=== PATIENT | male | born 1970 ===

== ENCOUNTER → 2023-03-27 14:56 | Outpatient (BNVA) | payer BC, SELFPAY | PROVIDERS: Visit Provider Internal Medicine | DX: I49.8 Other specified cardiac arrhythmias (principal); I49.3 Ventricular premature depolarization; I10 Essential (primary) hypertension | CPT/HCPCS: 93005 ==

== ENCOUNTER → 2023-04-14 08:06 | Outpatient (REF) | payer BC, SELFPAY ==
--- NOTE | 2023-04-14 08:15 | CA_ITS ---
Acquisition Time: 2023-04-14 08:24:55 Total Exercise Time: 00:06:10 Test Indications: Abnormal ECG Medications: LISINOPRIL/HCTZ LORATADINE METOPROLOL NEBUMETONE Protocol: RICCARDO Max HR: 123 BPM 72% of Pred: 170 BPM Max BP: 146/078 mmHG Max Work Load: 7.2 METS Exercise stress test with exercise 6 min 10 sec of Riccardo protocol, achieving 68% MPHR, with moderate sob, no chest discomfort, with isolated PACs, frequent multifocal PVCs throughut test, occassional ventricular cuplets, with blunted chronotropic and normotensive response to exercise, with nondiagnostic EKG for ischemia. Test reviewed with Dr Pitt. Referred By: Pal Richardson Overread By: DEE STRICKLAND
--- NOTE | 2023-04-14 08:15 | HM_ITS ---
Conclusion: 1. Patient was monitored for total period of 3 days and 5 hours 2. Baseline was normal sinus rhythm with average heart of 71 beats per minute 3. No significant pauses noted 4. Total of 8118 PVCs accounting for 7.2% total beats account for frequent PVCs 5. Occasional PACs noted 6. Two episodes of nonsustained VT noted fastest 150 beats per minute and longest 3 beats 5. Patient marked twice without reporting any symptoms correlating with PVCs MTDD
== END ==
LOC: HO.CARD 08:06
PROVIDERS: Visit Provider Internal Medicine
DX: R00.2 Palpitations (principal); I49.8 Other specified cardiac arrhythmias
CPT/HCPCS: 93017; 93242

== ENCOUNTER 2023-06-26 15:55 | Outpatient (AMB) | payer BC, SELFPAY ==
--- NOTE | 2023-06-26 16:09 | A.OFFVIS_ITS ---
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 He underwent a Holter monitor and stress test and now presents for follow-up. Today he reports he has been feeling well. He has no concerning heart palpitations. He denies having chest discomfort at rest or with activity. No significant shortness of breath however admits to being mostly sedentary. He had knee replacement surgeries within the last 1-2 years and reports he is still recovering. He wants to increase his activity tolerance. No dizziness, presyncope, syncope, PND, orthopnea or edema. Takes COUNT INCLUDES THE [facility] Medical History Essential hypertension MARIA TERESA on CPAP Prostate cancer Surgical History H/O prostatectomy History of total left knee replacement History of total right knee replacement Family History Father Heart attack Mother Kidney failure Social History Alcohol intake: former Year quit: 1983 Patient Tobacco Use Status: Never used Tobacco Review of Systems Const All systems reviewed & are unremarkable except as noted in HPI and below ENT Reports dizziness Card Denies chest pain, Denies chest pain at rest, Denies chest pain with activity, Denies rapid heart rate, Denies pedal edema, Denies edema, Denies leg edema, Denies lightheadedness, Denies palpitations, Denies dyspnea, Denies dyspnea on exertion and Denies orthopnea Resp Denies cough, Denies dyspnea and Denies dyspnea on exertion GI Denies hematochezia and Denies change in stool character Musc Denies abnormal gait, Reports limited range of motion, Reports muscle cramps, Denies muscle weakness, Denies numbness, Denies radiating pain into limb, Denies stiffness and Denies tingling Neuro Denies abnormal gait, Reports dizziness, Denies numbness and Denies tingling Endo Denies palpitations Physical Exam Vital Signs: Last Vital Signs Pulse 65 06/26/23 16:10 BP 120/70 06/26/23 16:10 BMI result Body Mass Index 41.5 Const General: cooperative, healthy appearing, comfortable and no acute distress Orientation/consciousness: patient oriented x3 Neck Neck: Yes normal visual inspection Resp Effort & Inspection: normal respiratory effort Auscultation: clear to auscultation bilaterally, no crackles, no rales, no rhonchi and no wheezes Cardio Jugular venous distension: no JVD Rate: regular rate Rhythm: regular rhythm Heart sounds: S1 normal heart sound present, S2 normal heart sound present, no murmurs and no rubs Neuro General: patient oriented x3 Extrem General: Yes normal to inspection, No no pedal edema and No calf tenderness Psych Appearance: grossly normal Mental Status: mental status grossly normal Speech and movement: Normal speech and movement present Assessment & Plan Assessment & Plan (1) PVC (premature ventricular contraction): Code(s): I49.3 - Ventricular premature depolarization Plan: Reported history of PVCs. Notes indicate prior evaluation by [facility] EP and was put on beta-blockers. Echocardiogram from 2019 was reported as being normal. Holter monitor done 04/14/2023 for 3 days shows sinus rhythm with average heart rate 71, PVCs 7.2% of the time, NSVT runs longest 3 beats. Exercise stress test done 04/14/2023 with exercise 6 minutes 10 seconds with moderate shortness of breath, no chest discomfort, with and multi focal PVCs and ventricular couplets, achieving only 68% of MPHR are so nondiagnostic for ischemia. Today he reports he is generally feeling well with no concerning symptoms. He would like to increase his activity level. Will plan to update echocardiogram to ensure no cardiomyopathy from frequent PVCs. At present will continue current dose of metoprolol as his resting heart rate is in the 60s. Will check with his primary drum drier regarding need for further evaluation for ischemia. Cardiology follow-up once future test results are known. (2) Essential hypertension: Code(s): I10 - Essential (primary) hypertension Plan: Well controlled at present time. Continue lisinopril, hydrochlorothiazide and metoprolol (3) Morbid obesity: Code(s): E66.01 - Morbid (severe) obesity due to excess calories Plan: Morbidly obese, somewhat sedentary. This likely contributes to his shortness of breath with activity. He is aware of the need for weight loss and anticipates increasing his activity levels once he knows his heart will tolerate. Orders: Orders CA echo transthoracic complete Today I49.3 - Ventricular premature depolarization Coding Level of Care Code Est Pt Level 4 (29810) Diagnoses PVC (premature ventricular contraction) I49.3 Essential hypertension I10 Morbid obesity E66.01 Time Spent (min) 26 Comment chart review, document, interview, assess
[2023-06-26 16:10] VITALS: BP 120/70; PULSE 65; BMI 41.5
== END 2023-06-26 16:56 | disposition home or self-care (01) ==
PROVIDERS: Visit Provider Nurse Practitioner Family
DX: I49.3 Ventricular premature depolarization (principal); I10 Essential (primary) hypertension; E66.01 Morbid (severe) obesity due to excess calories
CPT/HCPCS: 99214

== ENCOUNTER → 2023-06-26 15:55 | Outpatient (BNVA) | payer BC, SELFPAY | PROVIDERS: Visit Provider Nurse Practitioner Family ==

== ENCOUNTER → 2023-08-11 07:57 | Outpatient (REF) | payer BC, SELFPAY ==
--- NOTE | ~2023-08-11 | NM_ITS ---
Lexiscan Myocardial perfusion study Indication: Premature contractions, assess for coronary disease and ischemia Technique: The patient was brought in for a Lexiscan perfusion study on 08/11/2023 and was injected 0.4 mg of Lexiscan intravenously. Within a minute of this injection 40 mCi of sestamibi was given intravenously. Images were obtained using the SPECT gamma camera interlaced with the gating device. Images were obtained in supine position. Resting perfusion study was performed on 08/14/2023. Patient was administered 40 mCi of sestamibi intravenously at rest. Images were then obtained in supine position. Images were processed with the software and compared side to side in short axis, horizontal long axis and vertical long axis views. Total DLP 137mGy-cm. Findings: Raw acquisition reviewed. The stress perfusion study showed no significant perfusion abnormality. Both uncorrected as well as CT attenuation corrected images were reviewed. The gated study shows normal LV systolic function with calculated LVEF of 66%. LV cavity is normal in size. The gated study shows normal wall thickening and contraction of segments. Resting study shows no significant perfusion abnormality. Gating at rest reveals normal wall motion with ejection fraction at 55%. The findings are consistent with no clear reversible or fixed perfusion defects. NM/NM cardiolite stress test Impression: 1. Myocardial perfusion imaging study shows likely normal myocardial perfusion. 2. Gated LVEF is 66% during stress and 55% during rest. 3. Transient ischemic dilatation not present. EKG component of the test reported separately.
--- NOTE | 2023-08-11 08:01 | CA_ITS ---
Transthoracic Echocardiogram Patient (Last, First, Middle): Adrian Nassar, Gender: Male Date of : 1970 Age: 53 Procedure Date: 08/11/2023 Procedure Type: Transthoracic Echocardiogram Location: OP Height: 180.34 cm Weight: 122.47 kg BSA: 2.40 m2 Heart Rate: 67 bpm BP: 124 / 80 mmHg Lard Mixer: SB Referring MD: Phylicia Pinto SALES SERVICE ASSISTANT-C Symptoms: I49.3 - Ventricular premature depolarization Study Quality: Adequate w contrast ECG Rhythm: Sinus Conclusions: - The left ventricular systolic function is normal. The visually estimated ejection fraction is between 60-65%. - Possible basal inferolateral hypokinesis (cannot comment definitively). - No obvious valvular pathology seen on this study. Findings Procedure Information Contrast agent, definity, is being given per protocol without apparent complications. Left Ventricle Normal left ventricular cavity size. There is normal left ventricular wall thickness. The left ventricular systolic function is normal. The visually estimated ejection fraction is between 60-65%. Diastolic function is normal for age. Possible basal inferolateral hypokinesis. Right Ventricle Normal right ventricular cavity size and systolic function. Atria Both atria are normal in size. Aortic Valve There is mild calcification of the aortic valve. There is no aortic valve stenosis. There is no aortic valve regurgitation. Mitral Valve The mitral valve appears normal. There is trace mitral valve regurgitation. There is no mitral valve stenosis. Pulmonic Valve The pulmonic valve is likely normal. Tricuspid Valve There is trace tricuspid valve regurgitation. Tricuspid regurgitation envelope is inadequate for calculation of right ventricular systolic pressure. Great Vessels The asc aorta and aortic arch are normal in size. Venous The inferior vena cava is normal in size and collapses greater than 50% with inspiration. Pericardium/Pleural There is no evidence of pericardial effusion. Prior Study Comparison No prior study available for comparison. Recommendations, Care & Conclusions No obvious valvular pathology seen on this study. Measurements 2D Linear Measurements IVSd: 1.78 0.6-0.9/0.6-1.0 cm LA Diam: 4.80 2.7-3.8/3.0-4.0 cm LAIDs Index: 2.00 1.5-2.3 cm/m2 LVOT Diam: 2.40 3.0+(-)1.3 cm 2D Systolic Function EF 4C: 70.80 >55% EF 2C: 67.00 >55% EF BiP: 67.80 >55% Mitral Valve MV Pk E: 1.00 MV PK A: 0.87 MV Decel Time: 212.00 E/A: 1.10 E'Lateral: 8.59 E'Medial: 6.09 E/E' Med: 16.40 E/E' Lat: 11.60 PHT: 62.00 MVA PHT: 3.55 Decel [place]: 4.70 Aortic Valve AoV Pk Elbert: 1.83 AoV Pk Grad: 13.00 DYLON: 2.59 LVOT LVOT Pk Elbert: 1.06 LVOT Mn Elbert: 0.65 LVOT VTI: 0.23 LVOT Pk Grad: 4.00 LVOT Mn Grad: 2.00 LVOT Diam: 2.40 LVOT Area: 4.52 Diastolic Function MV Pk E: 1.00 MV Pk A: 0.87 E/A: 1.10 E'Medial: 6.09 E/E' Med: 16.40 E' Laterial: 8.59 E/E' Lat: 11.60 Right Ventricle TAPSE (mm): 25.90 TVS' Elbert: 14.10 Tricuspid Valve RA Press: 3.00 Great Vessels Aorta Ao Asc: 3.50 2.1-3.4 cm Ao Arch: 3.20 Pulmonary Veins Pulm Vein S/D 1.00 Pulmonary Valve PV Pk Elbert: 0.91 Peak PV Grad: 3.00 Updated in Other Vendor System with Status of Final Pal Richardson MD electronically signed on 08/11/2023 1:10:27 PM with status of Final
--- NOTE | 2023-08-11 08:01 | CA_ITS ---
Acquisition Time: 2023-08-11 09:02:05 Total Exercise Time: 00:02:00 Test Indications: PVC'S Medications: SEE H Protocol: LEXISCAN Max HR: 100 BPM 59% of Pred: 169 BPM Max BP: 122/082 mmHG Max Work Load: 1.6 METS Pharmacological stress tets with Lexiscan injection while walking slowly on the treadmill, without anginal symptoms, frequent PVCs, ventricular bigeminy, ventricular cuplet, with normotensive response to injection, with nondiagnositic EKGs. Nuclear images pending. Test reviewed with Dr. Lester. Referred By: Phylicia Pinto Overread By: GUSTAVO LESTER
== END ==
LOC: HO.CARD 07:57
PROVIDERS: PCP Family Medicine; Visit Provider Nurse Practitioner Family
DX: I49.3 Ventricular premature depolarization (principal); I10 Essential (primary) hypertension; E66.01 Morbid (severe) obesity due to excess calories
CPT/HCPCS: 78452; 93017; 93306; A9500; J0280; J2785; Q9957

== ENCOUNTER → 2023-08-11 08:01 | Outpatient (BNV) | payer BC, SELFPAY | PROVIDERS: PCP Family Medicine; Visit Provider Internal Medicine | DX: R94.31 Abnormal electrocardiogram [ECG] [EKG] (principal); I35.8 Other nonrheumatic aortic valve disorders | CPT/HCPCS: 78452; 93016; 93018; 93306 ==

== ENCOUNTER 2023-08-28 12:13 | Outpatient (REF) | payer BC, SELFPAY ==
--- NOTE | ~2023-08-28 | XR_ITS ---
EXAMINATION: XR LEFT KNEE, RIGHT KNEE, STANDING BILATERAL KNEES CLINICAL INFORMATION: Pain COMPARISON: None TECHNIQUE: AP standing view of bilateral knees. Lateral and sunrise views of bilateral knees. FINDINGS: Right knee: Status post total knee arthroplasty. Hardware appears intact. Joint effusion present. Mild anterior posterior patellar spurring. Left knee: Status post total knee arthroplasty. Posterior patellar button. Hardware appears intact. Joint effusion present. XR/XR knee standing BI IMPRESSION: Status post bilateral total knee replacements. Hardware appears intact.
--- NOTE | ~2023-08-28 | XR_ITS ---
EXAMINATION: XR LEFT KNEE, RIGHT KNEE, STANDING BILATERAL KNEES CLINICAL INFORMATION: Pain COMPARISON: None TECHNIQUE: AP standing view of bilateral knees. Lateral and sunrise views of bilateral knees. FINDINGS: Right knee: Status post total knee arthroplasty. Hardware appears intact. Joint effusion present. Mild anterior posterior patellar spurring. Left knee: Status post total knee arthroplasty. Posterior patellar button. Hardware appears intact. Joint effusion present. XR/XR knee LT 2V IMPRESSION: Status post bilateral total knee replacements. Hardware appears intact.
--- NOTE | ~2023-08-28 | XR_ITS ---
EXAMINATION: XR LEFT KNEE, RIGHT KNEE, STANDING BILATERAL KNEES CLINICAL INFORMATION: Pain COMPARISON: None TECHNIQUE: AP standing view of bilateral knees. Lateral and sunrise views of bilateral knees. FINDINGS: Right knee: Status post total knee arthroplasty. Hardware appears intact. Joint effusion present. Mild anterior posterior patellar spurring. Left knee: Status post total knee arthroplasty. Posterior patellar button. Hardware appears intact. Joint effusion present. XR/XR knee RT 2V IMPRESSION: Status post bilateral total knee replacements. Hardware appears intact.
== END 2023-08-28 12:14 | disposition home or self-care (01) ==
LOC: HO.HOSX 12:13
PROVIDERS: Visit Provider Orthopaedic Surgery
DX: G89.18 Other acute postprocedural pain (principal); Z96.653 Presence of artificial knee joint, bilateral
CPT/HCPCS: 73560; 73565

== ENCOUNTER 2023-08-28 12:43 | Outpatient (AMB) | payer BC, SELFPAY ==
--- NOTE | 2023-08-28 12:38 | MHC.OFFVIS ---
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 Pateint reports that he had the left knee raplaced Oct [address] Morales at [facility]. He explains that one morning he woke up with severe pain in the knee and went to the surgeons walk in care. He was told that everything was okay and was sent to physical therapy. He went for a second opinion of the knee and was told that the tibial base plate was out of alignment and the solution to this was Revision and the surgeon did not do theese. He presents today to have a third opinion. 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 He is S/P left TKA, DOS: 10/10/[address] Morales at [facility] and has a hx of right TKA in [address] Pickard. He says he woke up with severe pain in his left knee one morning, and was told that everything was fine initially and was sent for more PT. When he sought out a second opinion at [place] he was told the tibial base plate was loose and he would need a revision, however that surgeon did not do revisions. He says he has pain with daily activity, some days worse than others, along with stiffness. His pain is worse with walking or using stairs, but he says he has occasional pain when sitting at rest. He says his pain is not as bad as prior to his surgery, and he is able to walk for ~30 minutes before having to stop. He says he walks with a limp and does have to sit and rest after prolonged periods of walking. He denies any fevers, chills, or other symptoms of infection. He is not sure of his limitations as most of his exercise following his TKA have been on a stationary bicycle or Elliptical machine. He says he was a runner for ~20 years when he was younger, and most of his training was on the sidewalk. [facility], [facility] Medical History MARIA TERESA on CPAP Essential hypertension Prostate cancer Surgical History H/O prostatectomy History of total left knee replacement History of total right knee replacement Family History Father Heart attack Mother Kidney failure Social History (Updated 08/28/23 @ 13:10 by Ileana Graves CMA) Alcohol intake: former Year quit: 1983 Patient Tobacco Use Status: Never used Tobacco Current occupational status: employed Review of Systems Const All systems reviewed & are unremarkable except as noted in HPI and below Physical Exam Const General: no acute distress, alert and awake Orientation/consciousness: patient oriented x3 HEENT Head: Yes normocephalic and Yes atraumatic Eyes EOM: EOMs intact bilaterally Resp Effort & Inspection: normal respiratory effort and able to speak in complete sentences Cardio Jugular venous distension: no JVD Skin General skin exam: turgor normal Rashes: no rashes Neuro General: patient oriented x3 Extrem Other: Left Knee: No effusion 5-95 deg motion No ttp Well healed incision Psych Appearance: grossly normal Affect: normal affect Attitude: cooperative Results Reviewed Results Reviewed: I personally reviewed relevant radiographs. Bilateral total knee arthroplasty in expected post operative position with no hardware complications or evidence of loosening Assessment & Plan Assessment & Plan (1) Post-operative pain: Code(s): G89.18 - Other acute postprocedural pain Plan: This is a 53 year old man with left knee pain following a TKA, DOS: 10/10/[address] Morales. He complains of sharp pain with prolonged ambulation and using stairs, along with feeling his knee giving way. He denies any swelling and localizes his pain to the anterior aspect of his knee. I reviewed his radiographs with him, there is no evidence of hardware loosening either radiographically or clinically. I ordered bloodwork to rule out infection and recommend he work on strengthening, NSAIDs, and weight management. His knee is stiff and there is lateral tilting of the patella. There is noacute intervention warranted at this time. We will contact him with the results of his labwork. Next steps could include either aspiration or referral to Pain Management . (2) Status post left knee replacement: Comment: 10/10/22 Dr. Morales Code(s): Z96.652 - Presence of left artificial knee joint (3) History of total right knee replacement: Comment: 2020 Dr. Pickard Code(s): Z96.651 - Presence of right artificial knee joint Plan Scribed for Dedrick Williamson MD by Timoteo Peralta, pesticide use medical coordinator, on 08/28/23 at 1:20 PM, EST. Orders: Orders XR knee LT 2V Today M25.569 - Pain in unspecified knee XR knee standing BI Today M25.569 - Pain in unspecified knee XR knee RT 2V Today M25.569 - Pain in unspecified knee Erythrocyte Sedimentation Rate Today Z96.652 - Presence of left artificial knee joint C Reactive Protein Today Z96.652 - Presence of left artificial knee joint Coding Level of Care Code New Pt Level 4 (83366) Diagnoses Post-operative pain G89.18 Status post left knee replacement Z96.652 History of total right knee replacement Z96.651
== END 2023-08-28 13:34 | disposition home or self-care (01) ==
PROVIDERS: PCP Family Medicine; Visit Provider Orthopaedic Surgery
DX: G89.18 Other acute postprocedural pain (principal); Z96.653 Presence of artificial knee joint, bilateral
CPT/HCPCS: 99204

== ENCOUNTER 2023-08-28 13:41 | Outpatient (REF) | payer BC, SELFPAY ==
[2023-08-28 14:56] LABS: C Reactive Protein 0.26 mg/dL (< or = 0.50)
[2023-08-28 15:11] LABS: Erythrocyte Sedimentation Rate 1 MM/HR (0-15)
== END 2023-08-28 13:42 | disposition home or self-care (01) ==
LOC: HO.LAB 13:41
PROVIDERS: PCP Family Medicine; Visit Provider Orthopaedic Surgery
DX: Z96.652 Presence of left artificial knee joint (principal)
CPT/HCPCS: 36415; 85652; 86140